=== PATIENT | male | born 1960 | race Caucasian/White ===

== ENCOUNTER 2018-10-12 09:17 | Outpatient (CLI) | payer BC | END 2018-10-12 09:18 | disposition home or self-care (01) | LOC: C.PAT 09:17 ==

== ENCOUNTER 2018-10-29 07:11 | Observation (INO) | payer BC ==
[2018-10-12 09:30] VITALS: BMI 33.2
[2018-10-29] MEDS ORDERED: ceFAZolin 1 gm in NS 2 GM/200 ML BAG IVPB ONE (14:05)
[2018-10-29] MEDS ORDERED: Midazolam 2 MG/2 ML VIAL ONE (14:27)
[2018-10-29] MEDS ORDERED: Propofol 10 mg/ml Inj (20 ML) ONE (14:28)
[2018-10-29] MEDS ORDERED: Rocuronium 10 mg/ml (5 ml) ONE ×3 (14:37→18:35)
[2018-10-29] MEDS ORDERED: Succinylcholine Chloride 20 mg/ml Syr (5 ml) IV ONE (14:37)
[2018-10-29] MEDS: ceFAZolin 1 gm in NS 1 GM/100 ML BAG IVPB ONE ×2 (18:54→19:15)
[2018-10-29] MEDS ORDERED: Neostigmine 1:1000 (1 mg/ml) Inj ONE (20:07)
[2018-10-29] MEDS ORDERED: Morphine 4 MG/ML VIAL ONE ×2 (20:24→20:26)
[2018-10-29] MEDS: HYDROmorphone 0.5 mg/0.5 ml ISec IVP PRN ×2 (21:16→21:33)
[2018-10-29] MEDS ORDERED: HYDROmorphone 0.5 mg/0.5 ml ISec ONE (21:16)
[2018-10-29] MEDS ORDERED: Oxycodone/Acetaminophen 5/325 mg Tab PO PRN (21:23)
[2018-10-29] MEDS ORDERED: Ropivacaine 0.5% PF (20 ml) inj INJ ONE (21:53)
--- NOTE | 2018-10-29 22:13 | PCM.ANESB7 ---
Adductor Canal Block - Adductor Canal Block Date of Procedure: 10/29/18 Anesthiologist: Tomás Pre-Procedure Diagnosis: left knee partial ACL tear s/p left knee arthroscopy with primary ACL repai Post-Procedure Diagnosis: same Procedure Performed: Adductor Canal Block Left - Procedure Adductor Canal Block: The procedure was explained to the patient that it is for the post-operative pain management. Neuro exam conducted prior to block, left lower extremity motor and sensory grossly intact. Dorsalis pedis pulse appreciated. Consent was obtained after a thorough discussion with the patient regarding the benefits and possible complications of local anesthetic adductor canal block of the femoral nerve prior to surgery. Standard monitors were applied to the patient. Time-out was held with the PACU nurse to confirm the appropriate block. After applying supplemental oxygen, the patient was placed in supine position with and the operative leg was flexed slightly at the knee and externally rotated as needed, and was kept anatomically stable. The mid-thigh of the left lower extremity was exposed. The ultrasound transducer was then applied transversely along the medial aspect, about midway down the thigh and the femoral artery and vein were identified in appropriate relation with the sartorius muscle. At this time, the femoral nerve was visualized lateral to the femoral artery within the canal. After thorough identification, this area area was prepped with chloraprep. At this point, a #22 gauge Stimuplex 4-inch needle was inserted in-plane in a [id number] orientation, and advanced toward the femoral nerve. Advancement was performed carefully under direct ultrasound visualization. After negative aspiration, 2cc of 0.5% Ropivacaine was injected and this was followed with 28cc of 0.5% Ropivacaine. Under ultrasound guidance the local anesthetics were observed spreading around the femoral nerve. The needle was removed intact and sterile dressing was applied. The patient had stable vital signs, was conscious and in no apparent distress. The patient tolerated the femoral nerve block well with stable vital signs.
[2018-10-29 23:14] VITALS: TEMP 98.5
[2018-10-29 23:47] VITALS: BP 133/85; PULSE 91; RESP 12; O2SAT 96
--- NOTE | 2018-10-30 20:07 | PCM.SURG1 ---
Surgeon's Initial Post Op Note - Surgeon's Notes Surgeon: James Tristan MD Embroidery Finisher: [employer] PA-C Type of Anesthesia: General Endo, [facility] Pre-Operative Diagnosis: Left knee: #1 focal osteochondral defect Lateral Femoral Condyle. #2 medial meniscal tear. #3 lateral meniscal tear. 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 #2 medial meniscal tear (2 zones of injuyr= complex tear from white- red zone mid-body to posterior horn/ complex tear at posterior horn-root junction, stable root attachement, both zones of injury not repairable). #3 lateral meniscal tear (3 zones of injury= complex anterior horn superior tearing, not repairable/anterior horn red-red zone peripheral tear with instability, repairable/ posterior horn red-red zone menisco-capsular seperation, repairable). #4 partial ACL tear (grade 2 instability with detached AM & PL bundles, repairable). #5 significant synovitis all 3 compartments. #6 hypertrophic, inflamed anterior fat pad (causing anterior & PF impingement). 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 #2 medial meniscal tear (2 zones of injuyr= complex tear from white-red zone mid-body to posterior horn/ complex tear at posterior horn-root junction, stable root attachement, both zones of injury not repairable). #3 lateral meniscal tear (3 zones of injury= complex anterior horn superior tearing, not repairable/anterior horn red-red zone peripheral tear with instability, repairable/ posterior horn red-red zone menisco-capsular seperation, repairable). #4 partial ACL tear (grade 2 instability with detached AM & PL bundles, repairable). #5 significant synovitis all 3 compartments. #6 hypertrophic, inflamed anterior fat pad (causing anterior & PF impingement). #7 symptomatic medial and lateral plica bands Operation Performed: Left Knee: #1 Arthroscopic primary ACL repair. #2 Arthroscopic partial medial menisectomy. #3 Arthroscopic partial lateral menisectomy and concurrent all-inside repair. #4 Arthroscopic extensive synovectomy all 3 compartments. #5 Arthroscopic resection & debridement symptomatic plica bands. #6 Arthroscopic resection & debridement hypertorphic fat pad. #7 Open osteochondral allograft transplant LFC focal defect. #8 Open osteochondral allograft transplant MFC focal defect. #9 Arthroscopic Intra- articular PRP injection Specimen/Specimens Removed: specimen= none. complications= none. tourniquet time= 0min. Implants=. Arthrex: #1 4.75 biocomposite swivel lock anchors x3 (2 for ACL repair, 1 for LM AH repair/stabilization). #2 fiberwire surture. Linvatec: Sequent meniscal repair system, 4 implants in total for LM repair (1kit). JRF: size matched LFC allograft for OCA LFC & MFC defects Estimated Blood Loss: EBL {In ML}: 10 Blood Products Given: N/A Drains Used: No Drains Post-Op Condition: Good Date of Surgery/Procedure: 10/29/18 Time of Surgery/Procedure: 15:00
--- NOTE | 2018-11-10 08:22 | OP ---
PROCEDURE DATE: 10/29/2018 PREOPERATIVE DIAGNOSES: Left knee, 1. Focal osteochondral defect, lateral femoral condyle, and possibly medial femoral condyle. 2. Medial meniscal tear. 3. Lateral meniscal tear. 4. Partial anterior cruciate ligament tear with instability. POSTOPERATIVE DIAGNOSES: 1. Focal full thickness osteochondral defect, lateral femoral condyle (measuring 20 mm x 15 mm at anterior aspect near junction with trochlear and intercondylar notch) and medial femoral condyle (measuring 18 mm x 10 mm at anterior aspect near junction with trochlear and intercondylar notch). 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 2. Medial meniscal tear (2 zones of injury = #1 complex tear from white-red zone mid body to posterior horn, not repairable; #2 complex tear at posterior horn - root junction, stable root attachment, not repairable). 3. Lateral meniscal tear (3 zones of injury = #1 complex anterior horn superior tearing, not repairable; #2 anterior horn red-red zone peripheral tear/ detachment with instability, repairable; #3 posterior horn red-red zone meniscal capsular separation, repairable). 4. Partial anterior cruciate ligament tear (grade 2 to 3 instability with detached anterior medial bundle proximal avulsion, posterior lateral bundle partially torn/partially detached, good-quality remnant ACL tissue in both bundles, repairable). 5. Significant synovitis, all three compartments. 6. Hypertrophic, inflamed anterior fat pad (causing anterior and patellofemoral impingement). 7. Symptomatic medial and lateral plica bands. 8. Large osteochondral loose body, measuring 5 mm x 6 mm. PROCEDURE: Left knee, 1. Arthroscopic primary anterior cruciate ligament repair (anterior medial and posterolateral bundles repaired successfully). 2. Arthroscopic partial medial meniscectomy. 3. Arthroscopic all-inside (posterior horn repair) and outside-in (anterior horn repair) lateral meniscal repair. 4. Arthroscopic extensive synovectomy, all three compartments. 5. Arthroscopic resection and debridement, symptomatic medial and lateral plica bands. 6. Arthroscopic resection and debridement, hypertrophic fat pads. 7. Open osteochondral allograft transplantation, lateral femoral condyle, focal chondral defect. 8. Open osteochondral allograft transplantation, medial femoral condyle, focal chondral defect. 9. Arthroscopic intraarticular platelet-rich plasma injection. 10. Arthroscopic removal of loose body through accessory portal. SURGEON: James Tristan MD MOTOR VEHICLE EMISSIONS INSPECTOR: Zay Brothers PA-C JUSTIFICATION FOR MOTOR VEHICLE EMISSIONS INSPECTOR: Zay Brothers is a certified physician assistant hall director whose skilled surgical services were an absolute necessity for successful completion of the procedure as he provided skilled surgical assistance with positioning of the patient, positioning of extremity, management of surgical hough, retraction of neurovascular structures, preparation of allograft osteochondral transplant from donor condyle, preparation of osteochondral allograft for transplantation from donor condyle to lateral femoral condyle, passage of suture and placement of anchors for ACL repair fixation, facilitating All-inside lateral meniscus repair with passage of sutures, facilitating partial medial meniscectomy and extensive synovectomy, removal of loose body through an accessory portal, wound closure, fitting and placement in postop hinged knee brace locked at 0-degree extension. Zay Brothers was present for the entire case and was an absolute necessity for successful completion of the procedure. ANESTHESIA: General endotracheal anesthesia with a postop regional nerve block placed by anesthesia staff in PACU. SPECIMEN: Osteochondral loose body, sent to pathology. COMPLICATIONS: None. TOURNIQUET TIME: Zero minutes. ESTIMATED BLOOD LOSS: 10 mL. DRAINS: None. DISPOSITION: The patient was extubated and transferred to PACU in stable condition. IMPLANTS: 1. Arthrex 4.75 BioComposite SwiveLock anchors x3 (two anchors for ACL repair, one anchor for lateral meniscus anterior horn repair/stabilization), #2 associated FiberWire suture for ACL repair and lateral meniscus anterior horn repair. 2. Linvatec Sequent all-inside meniscal repair system, 4 implants in total, 4 at lateral meniscus, posterior horn repair (1 kit opened). 3. JRF size matched lateral femoral condyle allograft for osteochondral allograft transplantation to lateral femoral condyle and medial femoral condyle, full thickness chondral defects. INDICATIONS FOR SURGERY: The patient is a 58-year-old male with past medical history significant for hypertension, type 2 diabetes, hypercholesterolemia who presented to the office for the first time under my care on 09/07/2018 with right foot and ankle pain, progressively worsening over the past 5 years, and left knee pain and instability for two months. For the right ankle/foot pain, the pain has progressively worsened over the past 5 years, and he does not recall a specific traumatic event. For the left knee pain, the pain has progressively worsened over the past two months, and there is not a specific traumatic event that he recalls but progressively over the past 2 months, he has had multiple giving away episodes and twisting episodes that he believes have slowly contributed to the two months of instability he is currently experiencing. Left knee examination in the office on initial presentation on 09/07/2018 was positive for lateral and medial Galileo, full range of motion present compared to contralateral knee, ACL with significant instability including 2+ anterior drawer and neutral and internal rotation with a firm endpoint, 3+ anterior drawer and external rotation with a soft endpoint, 2+ Archana with a soft endpoint, 2+ to 3+ pivot shift. X-rays done in the office on 09/07/2018 as weightbearing x-rays showed that the joint line is still well maintained with no evidence of advanced DJD. He rated his left knee pain as 6/10 at all times. The pain is worse with increased activity. Pain wakes him at night. He states that this has become a significant negative impact on his quality of life and his interfering with his ability to perform ADLs as well as travel for his occupation. 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 On initial presentation, he underwent a cortisone mixture intra-articular injection to the knee that provided him with near complete resolution of pain as well as fitting and placement in an [id number] ACL brace, referral to start physical therapy, antiinflammatory medication in the form of Mobic, antiinflammatory cream. He started the conservative treatment program and was also referred for an MRI of the left knee. He followed up in the office on 09/16/2018 after undergoing the left knee MRI. MRI of the left knee done at [facility] on 09/11/2018 was read as: 1. Thinning and attenuation with increased signal seen within the visualized anterior cruciate ligament suggestive for interstitial delamination/interstitial partial tearing. 2. Transverse linear increased signal seen within the posterior horn medial meniscus extending towards inferior articular surface suggestive for intrasubstance partial tearing with adjacent strain at the posterior meniscal capsular junction. 3. Globular increased signal at the anterior root of the anterior horn of the lateral meniscus suggestive for tear. Additional blunting of the tip of the body of the lateral meniscus, also concerning for small tear. 4. Low-grade sprain of medial collateral ligament. 5. Mild distal quadriceps tendinopathy. 6. hyperintense fluid intensity seen extending along the lateral aspect of the patellar tendon. 7. Prominent cartilage thinning and loss overlying the patellar apex and medial patellar facet with adjacent chondromalacia patella. 8. Moderate cartilage thinning and loss, anterior aspect lateral femoral condyle with an osteochondral lesion, measuring 1.1 cm at the anterior aspect of the lateral femoral condyle near the intercondylar notch. He was compliant with all conservative treatment recommendations including use of the ACL brace during all activity, anti-inflammatory medication, anti-inflammatory cream, physical therapy, and home exercise program. The initial intra-articular cortisone injection done in the office 09/07/18 provided him with near complete resolution of pain that lasted 2 weeks. After that point the pain progressively worsened and returned back to baseline level of pain and dysfunction. Despite the improvement in pain after the injection, he stated that any activity without the ACL brace on resulted in episodes of giving way and instability, "I do not trust my knee". I reviewed the MRI findings with him and his , we discussed treatment options including continuation of bracing and the conservative treatment program, possible supplemental cortisone injections versus surgical intervention in the form of: Left knee arthroscopic evaluation of ACL tear and ACL repair versus reconstruction with allograft, medial and lateral meniscal repair versus partial meniscectomy, osteochondral allograft transplant to [facility], and all related indicated arthroscopic procedures. the risks, benefits, alternatives to the surgery were discussed at length with the patient and his , risks included but were not limited to infection, neurovascular damage, loss of function, loss of limb, failure of repair, failure of grafts, accelerated chondrolysis degenerative process, need for further surgery, development of chronic pain and disability, development of blood clots including DVT and PE, anesthesia reactions including , inability to return to preinjury or presurgical level of activity and occupation, cardiopulmonary perioperative complications. After answering all of their questions, they accepted the risks and wished to proceed with surgery. They watched surgical animation videos and diagnosis videos, they expressed that they had a good understanding of the diagnosis and multiple parts of the proposed surgeries. I reviewed at length with the patient and his the postop rehabilitation protocol and the need for compliance with the rehab protocol in order to maximize the chances successful outcome after surgery, they stated that they had a good understanding and would be in good compliance with the protocol postop. We discussed DVT prophylaxis options, with the patient's age and size as a tall, larger man and the length of surgery to be conducted, we discussed DVT prophylaxis. After reviewing the pros and cons of different options, he agreed to he agreed to Lovenox 40 mg subcu injections once daily for 2 weeks postop. We ran this DVT prophylaxis option by his primary care physician/scudding inspector Dr. Juarez, who agreed with 40 mg once daily dosing and the choice of Lovenox overall. We had a long discussion reviewing pain management postop and the dangers of opiate use, he stated that he understood. He was referred to his PCP/scudding inspector, Dr. Juarez, for PAT's and preoperative medical evaluation. Surgery was scheduled at [facility] on October 29, 2018. PROCEDURE IN DETAIL: Patient was identified in the preoperative holding area and the left knee was marked for surgery. Once again as described above, the risks/benefits/alternatives to surgery were discussed at length with the patient at his , all questions answered and final informed consent obtained. After a brief discussion with anesthesia staff, the patient was brought to the operating room and placed in a well-padded operating room table with all bony prominences and superficial neurovascular structures well padded. Perioperative IV antibiotics were administered. Initial timeout was done with the surgeon, anesthesia staff, OR staff all in agreement with the patient, procedure being done and extremity being operated on. General anesthesia was administered without difficulty or complications. Examination under anesthesia was then carried out. Examination under anesthesia: Left knee with no swelling, no warmth, no erythema, skin intact, full range of motion compared to contralateral knee, significant instability with 3+ anterior aircraft structural design engineer external rotation, 2+ anterior aircraft structural design engineer neutral and internal rotation with a soft endpoint, 2-3+ Archana with a soft endpoint, 2-3+ pivot shift, negative posterior drawer, negative reverse Archana, negative reverse pivot shift, negative posterior lateral corner drawer, negative dial test, negative recurvatum. Negative opening to medial or lateral joint line at 0 or 30 flexion with varus or valgus stress. Patella with normal tracking, no evidence of lateral instability, negative J sign, no subluxation, no crepitance. Reproducible palpable click at the inferior medial aspect of the patella at 30 flexion arc representing a symptomatic medial plica band. Tourniquet was placed high on the left thigh but never inflated. Left lower extremity was prepped and draped in standard sterile fashion. Final timeout was done with the surgeon, anesthesia staff, OR staff all in agreement with the patient, procedure being done extremity being operated on. 50 cc of normal saline was used to insufflate the knee joint. Anterior medial portal was made with stab incision through skin down to subcutaneous tissue down to level of capsule. Blunt arthroscopic trocar and cannula were inserted into the suprapatellar pouch and insufflation with arthroscopic fluid was begun. Spinal needle localization was used to localize optimal placement for anterior medial portal. Stab incision was made through skin down to subcutaneous tissue down to level of capsule. Accessory cannula was inserted through medial portal and the knee joint was copiously irrigated for removal of synovial debris and better visualization. A diagnostic arthroscopy was then carried out with the use of an arthroscopic probe. Diagnostic arthroscopy: Attention was first turned towards the suprapatellar pouch reveals no evidence of adhesions or loose bodies. Attention then turned towards the patellofemoral joint were intact patella was seen well seated within the trochlea with no evidence of instability or subluxation. Trochlea exhibited grade II chondromalacia at its superior aspect with surrounding region of intact chondral tissue measuring approximately 6 mm x 6 mm with no full-thickness defect seen, there was fibrillated chondral tissue and unstable flaps only. Attention was then turned towards the medial gutter where immediately seen was a thickened hypertrophic plica band that was indeed symptomatic creating friction with the medial aspect of the medial femoral condyle extending from the inferomedial aspect of the patella to the medial retinaculum. We then switched to the medial compartment. Immediately seen at the anterior aspect of the medial femoral condyle was a focal area of full-thickness chondral damage down to subchondral bone with a surrounding rim of intact cartilage measuring 18 mm x 10 mm near the junction with the trochlea. The surrounding cartilage of the medial femoral condyle was indeed intact with no evidence of injury or wear. With the arthroscopic probe the medial meniscus was carefully evaluated and was found to have 2 zones of injury: #1 a complex horizontal cleavage tear starting at the mid body extending to the posterior horn with the more extensive tearing of the inferior leaflet of this cleavage tear. The tear started at the white- white zone and extended to the periphery and was indeed not repairable. #2 zone of injury medial meniscus was identified at the junction of the posterior horn- root as a complex tear at the superior aspect of the horn-root junction not amenable to repair. The posterior root itself was intact with the majority of the fibers on the injured, at least 80% intact. I then turned our attention towards the intercondylar notch were intact PCL was found. The ACL exhibited complete avulsion of the anterior medial bundle and partial avulsion of the posterior lateral bundle with good remnant knik ACL fibers present amenable to repair. Attention then turned towards the lateral compartment where immediately seen at the anterior aspect of the lateral femoral condyle was a almost mirror image of the medial femoral condyle with a full thickness osteochondral injury measuring 20 mm x 15 mm at the anterior aspect of the junction with the trochlea and intercondylar notch. The surrounding chondral surface of the lateral femoral condyle was indeed intact with no evidence of injury. Lateral tibial plateau chondral surface was intact with grade I chondromalacia at the most. With the arthroscopic probe, the lateral meniscus was carefully evaluated and found to have 3 zones of injury: #1 complex anterior horn superior tearing, not repairable, #2 anterior horn red-red zone peripheral tear with instability/detachment with good quality anterior horn tissue, repairable, #3 posterior horn red-red zone meniscal capsular separation/peripheral tear, repairable. All throughout the knee joint 3 compartments was inflamed hypertrophic synovial tissue/synovitis that appeared to be symptomatic and potential pain generator. At the anterior aspect of the knee there was a hypertrophic, inflamed anterior fat pad/infrapatellar fat pad that was causing anterior impingement and patellofemoral impingement. Within the medial compartment, a 5 mm x 6 mm osteochondral loose body was identified. Continuation of procedure: Arthroscopic removal of large loose body: Upon completion of the diagnostic arthroscopy described above, a large osteochondral loose body measuring 5 mm x 6 mm was identified within the medial compartment along the posterior horn of the medial meniscus. An accessory portal was created almost immediately along the medial joint line with spinal needle localization. A large grasper was inserted once the portal was established and the large osteochondral loose body was removed in its entirety through the accessory portal created just for this part of the procedure. The osteochondral loose body was sent to pathology as a specimen. Arthroscopic lateral meniscus repair: We began with focusing on lateral meniscus repair. As stated above the lateral meniscus had 3 zones of injury consisting of: #1 complex anterior horn superior tearing that was not amenable to repair, #2 anterior horn peripheral red-red zone detachment/peripheral tear with resulting anterior horn instability, good quality remnant meniscal tissue amenable to repair and stabilization, #3 posterior horn meniscal capsular separation anterior to the popliteal hiatus with good quality red-red zone tissue amenable to repair. With the arthroscopic shaver, radiofrequency ablation, partial lateral meniscectomy of the anterior horn complex tearing at the superior surface was debrided down to a smooth contour removing the fibrillation and unstable meniscal fragments. We then turned our attention to the posterior horn tear. With the use of the View2Gether all inside meniscal repair system, 4 implants were placed at the peripheral red-red zone tear just anterior to the popliteal hiatus with good capsular side of fixation resulting in 3 vertical mattress sutures. This resulted in good stabilization and anatomic posterior horn meniscus red-red zone peripheral tear repair. Arthroscopic probe was used to test the construct and indeed a good posterior horn lateral meniscus repair resulted. The anterior horn proved to be a unstable peripheral detachment with good quality anterior horn lateral meniscal tissue present. A combination of outside in and all inside technique was employed for repair of the anterior horn. With the use of the Arthrex meniscal scorpion, 4 passes of the two-point 0 FiberWire suture were made starting from anterior working our way posterior. This resulted in 4 horizontal mattress sutures with the FiberWire sutures exiting the inferior aspect of the periphery of the anterior horn. The underlying anterior tibial eminence was cleared of overlying and interposed fat extending from the infrapatellar fat pad. Entry point for the knotless swivel lock fixation was identified. A military pilot hole using the punch for a 4.75 bio composite swivel lock anchor was created. All 8 ends of the 4 two-point 0 FiberWire suture horizontal mattress sutures were passed through the eyelet of the bio composite 4.75 mm swivel lock anchor from Arthrex. The knotless anchor was then placed while good tension was achieved with care taken not to over tension the anterior horn of the lateral meniscus repair. The anchor was placed with optimal tension with good fixation. The resulting construct of anterior horn lateral meniscus repair/stabilization was tested and found to be a good quality anterior horn lateral meniscus repair with great stability achieved. Once this was completed to satisfaction, final arthroscopic pictures of the posterior horn repair, partial lateral meniscectomy of the anterior horn superior fibers and anterior horn stabilization/repair were taken. Arthroscopic partial medial meniscectomy: As described above, medial meniscus exhibited 2 zones of injury/tearing: #1 complex tear white-red zone mid body to posterior horn as a complex horizontal cleavage tear, not repairable, #2 complex tear at posterior horn-root junction with a stable posterior root attachment remaining, not repairable. With the use of arthroscopic shaver, radiofrequency ablation, meniscal biters a partial medial meniscectomy was carried out removing the unstable meniscal fragments and fibrillation and establishing a smooth contour to the posterior horn of the medial meniscus to the posterior root. The inferior leaflet of the complex horizontal cleavage tear posterior horn was extensively damaged and decision was made to leave the superior leaflet of the cleavage tear intact while resecting the inferior leaflet. The posterior root was carefully evaluated and found to be stable with minimum of 80% of the posterior root fibers intact with no evidence of posterior root instability. Once the partial medial meniscectomy was completed, approximately 30% of the medial meniscal tissue overall was resected. Arthroscopic primary ACL repair: On careful evaluation of the remnant knik ACL, the anterior medial bundle was found to be completely avulsed from the proximal attachment at the lateral femoral condyle. The posterior lateral bundle was found to be partially avulsed with less than 30% of the fibers remaining attached to the insertion point at the lateral femoral condyle. The tissue quality of the remnant knik ACL was carefully evaluated and found to be of good quality tissue amenable for repair. We then proceeded with primary repair of both bundles. A midpatellar portal was created for passage of suture and suture management. The anterior medial portal was expanded upon and a passport cannula from Arthrex was used to minimize soft tissue bridges and suture management, also allow for drill access without posterior blowout for placement of the anchor fixation for both bundles. With the use of the meniscal scorpion suture passer from Arthrex, #2 FiberWire suture was passed starting at the distal aspect of the anterior medial bundle creating a burnout type suture pattern working our way from distal to proximal. Both ends of the #2 FiberWire suture exited at the proximal aspect of the anterior medial bundle. The knik insertion point for the anterior medial bundle at the lateral femoral condyle was identified and the fibers easily were reapproximated to their knik insertion point at the lateral femoral condyle. Supplemental fixation with a FiberWire cinch suture was also passed at the anterior medial bundle to be incorporated into the anterior medial bundle repair. Attention was then turned towards preparation of the posterior lateral bundle. Once again, the same technique was employed with passage of #2 FiberWire sutures starting at the distal aspect of the posterior lateral bundle working our way proximally. Both ends of the suture exited at the proximal aspect of the posterior lateral bundle and were easily reapproximated to the insertion point at the lateral femoral condyle. A supplemental FiberWire cinch suture was also placed at the posterior lateral bundle as an augment to the repair construct. The docking site for the swivel lock 4.75 knotless bio composite anchor for the posterior lateral bundle was identified at the knik insertion point. This was easily identified due to the remnant intact posterior lateral bundle fibers. A military pilot hole for the 4.75 anchor was predrilled with a 3.5 mm drill using the appropriate guide. Depth of 25 mm was established and the drill was removed. All 3 ends of the suture being the 2 ends from the #2 FiberWire and each 1 and from the cinch FiberWire suture were passed through the eyelet of the 4.75 bio composite swivel lock anchor. Good tension was maintained with the knee at 120 flexion for placement of the swivel lock anchor. The anchor was placed through the expanded anterior medial portal with good tension achieved and good fixation achieved with the anchor well seated. Fixation was tested as well as tension of the posterior lateral bundle fibers which were found to have good tension and anchor fixation. The excess exiting suture were then cut and removed. This was then repeated for placement of a second 4.75 mm bio composite swivel lock knotless anchor from [employer] for the anterior medial bundle insertion at the lateral femoral condyle with the knee at 90 flexion. Assembly Press Operator hole was predrilled and all 3 limbs of the suture were passed through the eyelet of the 4.75 bio composite swivel lock anchor from [employer]. The anchor was placed with good tension achieved on the suture and good bony fixation for the anchor well placed and seated. The construct was tested and indeed anterior medial bundle exhibited good tension and stability. Excess suture was then cut and removed. Physical examination of the knee displayed episcopal of ACL stability with negative anterior drawer and external rotation/internal rotation/neutral, negative Archana, negative pivot shift. Arthroscopic imaging of the anterior medial and posterior lateral bundle primary ACL repair was taken with demonstration of good tension in both bundles achieved and stable anchor fixation. Arthroscopic extensive synovectomy: With the use of arthroscopic shaver and radiofrequency ablation, an extensive synovectomy was carried out beyond what is considered usual and customary for better visualization during arthroscopic surgery. A significant amount of surgical time was dedicated to this portion of the procedure, as the extensive synovectomy was utilized to resect and debride and perform a synovectomy in all three compartments of the knee while maintaining good hemostasis. The medial and lateral symptomatic plica bands were also resected and debrided successfully. The hypertrophic and inflamed anterior fat pad causing anterior impingement and patellar femoral impingement was resected and debrided, all while maintaining good hemostasis. Again, this extensive synovectomy was carried out beyond what is normally utilized for better visualization during basic arthroscopic surgery and a significant amount of surgical time was dedicated to performing the successful extensive synovectomy and completing the treatment tasks of resecting the symptomatic hypertrophic medial and lateral plica bands, synovectomy of all three compartments, debridement of the hypertrophic fat pad that was causing anterior and patellofemoral impingement. OPEN osteochondral allograft transplantation to lateral femoral condyle and medial femoral condyle: Once all arthroscopic surgical intervention was carried out successfully and to satisfaction, we then turned our attention to the open part of the procedure being the osteochondral allograft transplantation to the full-thickness chondral injury of the medial femoral condyle and lateral femoral condyle. The anterior medial portal was expanded as a medial parapatellar approach through skin down to subcutaneous tissue down to the level of the retinaculum. Retinaculum was sharply incised as an arthrotomy leading up to the mid point of the medial aspect of the patella with care taken not to injure the knik medial patellofemoral ligament. Soft tissue retractors were placed in good position. Attention was first turned towards the anterior lateral femoral condyle lesion. The sizers from the [employer] osteochondral allograft transplantation kit were used, a 22 mm circular sizer was identified as the best fit for this lesion. The corresponding best chondral concavity surface at the lateral femoral condyle fresh tissue allograft was identified. The 22 mm circular sizer was used to establish the donor site dimensions. With the donor allograft well seated in the prep station and secured, harvesting of the donor osteochondral allograft 22 mm plug began. A depth of 12 mm was desired and planned for. Corresponding 12:00, 3:00, 6:00, 9:00 depth markings were identified. The 22 mm circular osteochondral allograft was harvested successfully. The recipient site was prepared with a depth of 13 mm in mind as the goal. Appropriate depth of the recipient site after preparation were taken at the 12:00, 3:00, 6:00, 9:00 positions. With the use of the rongeur approximate associated depths were established on the donor. The ends of the bony and of the plug were then bulleted to promote easy seating and placement of the graft. The 22 mm sized tap was then passed into the recipient site to also promote easy seating and placement of the graft. The depth was checked once again. A K wire was then selected in multiple microfracture holes were placed at the base of the recipient site. The donor osteochondral allograft was then placed with proper orientation to the associated depths and impacted into position with the soft tap. The graft was well seated with good congruence with the surrounding cartilage with no evidence of the graft being proud, the graft itself was flush with the surrounding cartilage. Once this was completed, we then turned our attention to the medial femoral condyle transplant. With the retractors in place, the focal area of full-thickness chondral injury to the medial femoral condyle anterior aspect near the intercondylar notch and choke layer was identified. The sizer was used again and this time a 20 mm circular osteochondral allograft would be created and transplanted. The same steps described above were then repeated for a 20 mm sized graft. The graft was harvested successfully and the recipient site prepared as described above. Proper depth for both the recipient and donor was established for the corresponding 12:00, 3:00, 6:00, 9:00 depth markings. The graft was then transplanted successfully with the chondral surface of the donor graft flush with the recipient surrounding intact cartilage. The wound was copiously irrigated and reapproximated with #1 Vicryl suture for deep tissue followed by two-point 0 Vicryl suture for subcutaneous tissue followed by three-point 0 Monocryl suture for skin. The arthroscopic camera was then inserted once again and good arthroscopic imaging of the osteochondral transplant was taken. The rim of the osteochondral transplants at both recipient sites of the medial femoral condyle and lateral femoral condyle were found to be flush with the surrounding knik intact cartilage. Final arthroscopic images were taken of the transplants as well as the lateral meniscus repair, partial medial meniscectomy, ACL primary repair of both bundles, and extensive synovectomy including resection of the symptomatic medial and lateral plica bands, 3 compartment synovectomy, hypertrophic and inflamed fat pad. All arthroscopic fluid and debris were then removed from the knee joint. Arthroscopic intra-articular PRP injection: With the help of anesthesia staff, a peripheral venous stick was done. The venous blood was spun in the [employer] centrifuge yielding 10 cc of PRP. Under direct arthroscopic visualization, the 10 cc of PRP in its entirety were injected intra-articular. The arthroscopic portals including the accessory portal for the loose body removal and the mid patellar portal as well as the lateral portal were reapproximated using 2.0 Vicryl suture for deep tissue followed by 3.0 Monocryl suture for skin. Sterile dressings were applied. A layer sterile cast padding was applied from the toes up to the superior thigh followed by a layer of compressive Dionte wrap from the toes up to the superior thigh. The knee was then fitted and placed in a postop hinged knee brace provided by my office. The brace is of absolute medical necessity to provide a stable environment for the osteochondral allograft incorporation, ACL repair healing, lateral meniscus healing. Once the brace was fitted and placed on the left knee locked at 0 extension, the patient was then extubated from general anesthesia and transferred to PACU in stable condition. Justification for billing and coding: #1 arthroscopic primary ACL repair was carried out successfully and therefore was coded and billed as CPT code 63804. #2 arthroscopic all inside lateral meniscus repair was carried out successfully and therefore was coded and billed as CPT code 73595. #3 arthroscopic partial medial meniscectomy was carried out successfully and therefore was coded and billed as CPT code 81767. #4 arthroscopic extensive synovectomy was carried out successfully, this was beyond what is considered usual and customary for better visualization during arthroscopic surgery of the knee, a significant amount of surgical time was dedicated to this portion of the procedure as the extensive synovectomy included a 3 compartment synovectomy while maintaining good hemostasis removing potential pain generators synovitis tissue, resection and debridement of symptomatic medial and lateral plica bands, resection and debridement of the hypertrophic/inflamed infrapatellar fat pad causing impingement. As a distinct part of the procedure, arthroscopic extensive synovectomy was coded and billed as CPT code 61686. #5 OPEN osteochondral allograft transplantation to the lateral femoral condyle with a 22 mm osteochondral plug harvested from a fresh osteochondral allograft donor tissue was carried out successfully and therefore was coded and billed as CPT code 92273. #6 OPEN osteochondral allograft transplantation to the medial femoral condyle with a 20 mm osteochondral plug harvested from a fresh osteochondral allograft donor tissue was carried out successfully and therefore was coded and billed as CPT code [id number]. #7 arthroscopic intra-articular PRP injection was done at the end of the procedure successfully and therefore was coded and billed as CPT 0232T. #8 Arthroscopic removal of large osteochondral loose body through an accessory portal was carried out successfully and therefore was coded and billed as CPT code [id number]. #9 a postop hinged knee brace provided by my office with the same date of service as the surgery was fitted and placed on the patient at the end of the procedure. The postop hinged knee brace locked at 0 extension was placed out of absolute medical necessity to provide the knee with a stable environment for ACL repair healing, lateral meniscus healing, osteochondral allograft transplantation plugs incorporation at the medial femoral condyle and lateral femoral condyle while allowing the patient to safely weight-bear while locked at 0 extension. The brace also provides him with the ability to unlock the brace and work on range of motion. Therefore, DME code [id number] was coded and billed. Disposition: Patient will be discharged home with his recover from general anesthesia. He is instructed to keep the dressings and a postop hinged knee brace on a clean dry and intact until he follows up in the office at [facility] within 1 week and already has a postoperative appointment set up. He can be weightbearing as tolerated to the left lower extremity with the brace locked at 0 extension at all times. He was educated on how to unlock the brace and work on gentle progressive range of motion over the weekend. He has been given a prescription for Percocet for pain control. He was given a prescription for Lovenox 40 mg subcutaneous injection starting postoperative day #1 for a total of 2 weeks postoperative. He will contact me directly with any questions or concerns. James Tristan MD [facility]
== END 2018-10-30 00:30 | disposition home or self-care (01) ==
LOC: C.SDS 07:11 → C.6T 21:09
PROVIDERS: ADMIT Internal Medicine Cardiovascular Disease; ATTEND Internal Medicine Cardiovascular Disease
DX: S83.249A Other tear of medial meniscus, current injury, unspecified knee, initial encounter (principal); S83.289A Other tear of lateral meniscus, current injury, unspecified knee, initial encounter; S83.512A Sprain of anterior cruciate ligament of left knee, initial encounter
CPT/HCPCS: 27415; 29876; 29880; 29888; 82948; C1713; C1751; G0378; J0171; J0690; J1170; J1885; J2001; J2250; J2270; J2405; J2704; J2710; J3010